=== PATIENT | female | born 2000 | race Caucasian/White ===

== ENCOUNTER 2020-10-20 03:11 | Emergency (ER) | payer OTHER, SELFPAY ==
--- NOTE | 2020-10-20 03:37 | Emergency Department Report ---
<JOVANNI MOJICA - Last Filed: 10/20/20 03:35> ED Psych HPI - General Chief Complaint: Psych Stated Complaint: SUICIDE ATTEMPT Time Seen by Provider: 10/20/20 03:14 Source: patient, police, EMS Mode of arrival: Ambulatory - History of Present Illness Initial Comments: Chief complaint: Suicide attempt HPI: This is a 20-year-old female with history of previous suicide attempt who was discovered attempting to jump off a bridge. Report given per police. Patient was transported per EMS. Patient states she just does not like herself anymore. She states that she just does not want to be here anymore. She lives with her father. MD Complaint: suicidal ideation, feels depressed -: days(s) (Several days) Associated Psychiatric Symptoms: depression, suicidal ideation History of same: Yes Quality: constant Improves With: none Worsens With: none Context: not taking psychiatric Associated Symptoms: denies other symptoms Treatments Prior to Arrival: other (Police EMS transportation) If Self Harm: has acted on plan (Was discovered attempting to jump from a bridge) - Related Data Previous Rx's Medication Instructions Recorded Last Taken Type Sertraline [Zoloft] 25 mg PO QDAY #30 tab 10/22/20 Unknown Rx hydrOXYzine PAMOATE [Vistaril] 25 mg PO BID PRN #60 capsule 10/22/20 Unknown Rx Allergies Allergy/AdvReac Type Severity Reaction Status Date / Time No Known Allergies Allergy Verified 10/20/20 09:25 ED Review of Systems Comment: All other systems reviewed and negative Constitutional: denies: fever, malaise Respiratory: denies: cough, shortness of breath Cardiovascular: denies: chest pain Gastrointestinal: denies: abdominal pain, nausea, vomiting Musculoskeletal: denies: back pain Skin: denies: rash, lesions Psychiatric: depression, suicidal thoughts. denies: anxiety, auditory hallucinations, visual hallucinations, homicidal thoughts ED Past Medical Hx - Past Medical History Previous Medical History?: No - Surgical History Past Surgical History?: No - Social History Smoking Status: Never Smoker Substance Use Type: Cocaine - Medications Home Medications: Home Medications Medication Instructions Recorded Confirmed Last Taken Type Sertraline [Zoloft] 25 mg PO QDAY #30 tab 10/22/20 Unknown Rx hydrOXYzine PAMOATE [Vistaril] 25 mg PO BID PRN #60 capsule 10/22/20 Unknown Rx ED Physical Exam - General Limitations: Language Barrier (Staff member provided Serbian interpretation) General appearance: alert, in no apparent distress, other (Tearful but cooperative calm) - Head Head exam: Present: atraumatic, normocephalic - Eye Eye exam: Present: normal appearance - ENT ENT exam: Present: mucous membranes moist - Neck Neck exam: Present: normal inspection, full ROM. Absent: tenderness, meningismus - Respiratory Respiratory exam: Present: normal lung sounds bilaterally. Absent: respiratory distress, wheezes, rales, rhonchi, stridor - Cardiovascular Cardiovascular Exam: Present: regular rate, normal rhythm, normal heart sounds. Absent: systolic murmur, diastolic murmur, rubs, gallop - GI/Abdominal GI/Abdominal exam: Present: soft, normal bowel sounds. Absent: distended, tenderness, guarding, rebound - Extremities Exam Extremities exam: Present: normal inspection - Neurological Exam Neurological exam: Present: alert, oriented X3 - Psychiatric Psychiatric exam: Present: normal affect, depressed, suicidal ideation (Tearful), other - Skin Skin exam: Present: warm, dry, intact, normal color. Absent: rash ED Medical Decision Making - Medical Decision Making Suicide attempt: Patient was discovered attempting to jump off a bridge. Christy de la rosa has previous history of suicide attempt. Patient is medically clear for psychiatric care. 1013 form completed. ED hold order in place. ED Disposition Clinical Impression: Alcohol intoxication, Suicidal ideations, Depression Disposition: DC-01 TO HOME OR SELFCARE Condition: Stable Instructions: Suicidal Feelings: How to Help Yourself, Living With Depression, Binge-Drinking Information, Adult Additional Instructions: Please follow-up with a psychiatrist or one of the outpatient behavioral health resources listed below. Please avoid any further alcohol use, as you are still under age, and in general please avoid any excessive alcohol intake. He is avoid any illicit drug use. Return to the emergency department with any worsening of your symptoms, thoughts of harming herself or others, or with any acute distress. Professional and Agency Contacts To help [facility](10/11) [place] Crisis Line: Suicide Prevention Line: Crisis Text Line: Text START to [phone] Emergency: 911 Outpatient COMMUNITY Behavioral Health Resources: [facility] [address] [address] [address], [place] [address] [place]: [facility] [address] [place], [place] [address] [facility]: [facility] [address] [place] [address] [place]: [facility] - [address] [place] [address] Thursday thru Thursday - 8am - 5pm [place]: [facility] Address: [address], [place] [address] [place]: [facility] Address: [address] [place] [address] Thursday thru Thursday- 7am-2pm [facility] Address: [address] [place] [address] Thursday thru Thursday: 8:30AM-5PM OUTPATIENT MENTAL HEALTH RESOURCES [facility], [address] [place] [address] [facility] Robin Avalos MD: [address] [facility] [address] [place], [place] [id number] [facility]: [address] [place] [address] [employer] [place], [place] [id number] [phone] [facility]: [address] [facility] [address] [place], [place] [id number] [facility]: [address] [facility] [address] [facility] [id number] [facility]: [address] [place], [place] Armando Holley MD: [address] [facility] [id number] [facility]: [address] [place], [place] [id number] [phone] [place] CRISIS AND ACCESS LINE: * Prescriptions: hydrOXYzine PAMOATE [Vistaril] 25 mg PO BID PRN #60 capsule PRN Reason: Anxiety Sertraline [Zoloft] 25 mg PO QDAY #30 tab [facility] - 2-3 Days [facility] [Provider Group] - 2-3 Days <REVA TILLMAN S - Last Filed: 10/22/20 11:19> ED Review of Systems ROS: Stated complaint: SUICIDE ATTEMPT Other details as noted in HPI ED Course Vital Signs 10/20/20 10/20/20 10/20/20 03:12 03:28 09:03 Temperature 98.4 F 98.2 F 98.3 F Pulse Rate 90 109 H 104 H Respiratory 16 18 16 Rate Blood Pressure 116/64 100/56 103/58 [Right] O2 Sat by Pulse 100 97 96 Oximetry 10/20/20 10/20/20 10/21/20 10:20 20:00 08:00 Temperature 98.8 F 97.6 F Pulse Rate 94 H 87 89 Respiratory 16 18 Rate Blood Pressure 116/62 120/78 [Right] O2 Sat by Pulse 97 98 Oximetry 10/21/20 10/21/20 10/22/20 20:00 22:00 02:03 Temperature 98.2 F 99.2 F Pulse Rate 76 78 Respiratory 16 18 16 Rate Blood Pressure 108/67 116/70 [Right] O2 Sat by Pulse 97 98 96 Oximetry 10/22/20 07:52 Temperature 98.0 F Pulse Rate 69 Respiratory 20 Rate Blood Pressure 109/63 [Right] O2 Sat by Pulse 98 Oximetry ED Medical Decision Making - Lab Data Result diagrams: 10/22/20 08:22 10/20/20 03:45 - Medical Decision Making This patient presented to the emergency department on 10/20 with the complaint of suicidal ideations after she was discovered attempting to jump off of a bridge. At that time she was placed on a 1013 and an ED hold. She was medically cleared by my colleague, Dr. Mojica. She did have a blood alcohol level of 0.17 but that has since resolved and the patient does not appear acutely i ntoxicated. The patient has been in the emergency department now for about 2 days and was placed on Vistaril and Zoloft. She was seen by the psychiatric team today and the patient denies any suicidal ideations. The psychiatric team also spoke with the patient's father who helped to create a safety plan. The patient expresses hope and optimism. Therefore the 1013 has been rescinded. I saw this patient this morning as well and once again she denies any current suicidal or homicidal ideations. She has been instructed to take the medications as prescribed, follow-up outpatient with psychiatric/behavioral health resources, but to return to the closest emergency department with any worsening of her symptoms, thoughts of harming herself or others, or with any acute distress. Critical Care Time: No Critical care attestation.: If time is entered above; I have spent that time in minutes in the direct care of this critically ill patient, excluding procedure time. ED Disposition Is pt being admited?: No Time of Disposition: 11:19
[2020-10-20 04:10] LABS: Basophils # (Auto) 0.2 K/mm3 (0.0-0.1); Basophils % (Auto) 1.2 % (0.0-1.8); Eosinophils # (Auto) 0.1 K/mm3 (0.0-0.4); Eosinophils % (Auto) 0.9 % (0.0-4.3); Hematocrit 38.4 % (30.3-42.9); Hemoglobin 13.7 gm/dl (10.1-14.3); Lymphocytes # (Auto) 2.5 K/mm3 (1.2-5.4); Lymphocytes % (Auto) 19.5 % (13.4-35.0); Mean Corpuscular HGB Conc 36 % (30-34); Mean Corpuscular Volume 82 fl (79-97); Monocytes # (Auto) 0.5 K/mm3 (0.0-0.8); Monocytes % (Auto) 3.8 % (0.0-7.3); Platelet Count 480 K/mm3 (140-440); Red Blood Count 4.72 M/mm3 (3.65-5.03)
[2020-10-20 04:20] LABS: Bacteria,Urine 2+ /HPF (Negative); Bilirubin,Urine NEG (Negative); Blood,Urine SM (Negative); Color,Urine Straw (Yellow); Protein,Urine <15 mg/dL mg/dL (Negative); Urobilinogen,Urine < 2.0 mg/dL (<2.0); WBC,Urine < 1.0 /HPF (0.0-6.0)
[2020-10-20 04:23] LABS: Amphetamine Screen,Urine Negative; Benzodiazepines Screen,Urine Negative; Cannabinoid Screen,Urine Negative; Cocaine Screen,Urine Negative; Methadone Screen,Urine Negative; Opiate Screen,Urine Negative
[2020-10-20] MEDS ORDERED: LORazepam 1 MG TAB PO ONE (04:26)
[2020-10-20] MEDS ORDERED: MELATONIN 5 MG TAB PO ONE (04:26)
[2020-10-20 04:38] LABS: Blood Urea Nitrogen 7 mg/dL (7-17); Calcium 9.5 mg/dL (8.4-10.2); Hemolysis Index 0
[2020-10-20 04:39] LABS: BUN/Creatinine Ratio 14
[2020-10-20] MEDS ORDERED: IBUPROFEN 800 MG TAB PO ONE (09:06)
--- NOTE | 2020-10-20 09:17 | Consultation ---
History of Present Illness - Reason for Consult Consult date: 10/20/20 Reason for consult: SI - History of Present Psychiatric Illness Per ER Note: HPI: This is a 20-year-old female with history of previous suicide attempt who was discovered attempting to jump off a bridge. Report given per police. Patient was transported per EMS. Patient states she just does not like herself anymore. She states that she just does not want to be here anymore. She lives with her father. Kelly Hooker is a 20y/o female patient I evaluated today. The patient was evaluated using a rope coiling machine operator. The patient says she was brought to the hospital because she tried to throw herself off a bridge. She says she "can't control herself." The patient is tearful and appears down. She also appears anxious. She does verbalizes being depressed. She says she lives with her dad, and says there is a lot of family issues. The patient denies any type of abuse at home. She is asking to be treated at home. Explained to the patient that for her safety she would need to have inpatient treatment. The patient verbalized understanding. She denies any psych history or psych meds. She also denies any illicit drug use. She denies hallucinations of any kind. PAST PSYCHIATRIC HISTORY: Diagnoses: Denies Suicide attempts or Self-harm behavior: Denied Prior psychiatric hospitalizations: Denies Substance Abuse history: Denies Previous psychiatric medications tried: Denies Outpatient treatment: Denies PAST MEDICAL HISTORY: None reported Family Psychiatric History: None reported or documented SOCIAL HISTORY Marital Status: Single Living Arrangements: lives with dad Employment Status: unemployed Access to guns/weapons: Denies Education: History of Abuse: Denies Legal History: Denies REVIEW OF SYSTEMS Constitutional: Negative for weight loss ENT: Negative for stridor Respiratory: Negative for cough or hemoptysis All other systems reviewed and are negative MENTAL STATUS EXAMINATION General Appearance and Behavior: Age appropriate, good hygiene, wearing appropriate clothes, cooperative polite with questioning. Cooperation: cooperative Psychomotor Behavior: Psychomotor normal Mood: Depressed Affect and affective range: congruent with stated mood, tearful Thought Process: Goal directed Thought Content: Within reality Speech: low tone Suicidal Ideation: Yes Homicidal Ideation: Denies hallucination: Denied Delusions: None elicited Impulse Control: Impaired Insight and Judgment: Limited Memory: Intact Attention: Undistracted Orientation: Alert and oriented Diagnoses: Major Depressive Disorder RECOMMENDATIONS 1013 Start Zoloft 25mg po daily Start Vistaril 25mg po BID Patient should be compliant with medications and not to use drugs and not to drink alcohol. PSYCHOTHERAPY: Supportive psychotherapy provided MEDICAL: Per primary team DELIRIUM PRECAUTIONS: Please re-orient patient frequently, keep lights on during the day, and minimize benzodiazepines and opiates as these medications could worsen patient's confusion. SIDEWALK REPAIRER: Per medical team DISPOSITION: Recommend acute inpatient psychiatric hospitalization at this time FOLLOW-UP: Will follow. Thank you for the consult. Please contact with any questions and/or concerns. Medications and Allergies Allergies Allergy/AdvReac Type Severity Reaction Status Date / Time No Known Allergies Allergy Unverified 10/20/20 03:26 Mental Status Exam - Vital signs Last Vital Signs Temp 98.3 F 10/20/20 09:03 Pulse 104 H 10/20/20 09:03 Resp 16 10/20/20 09:03 BP 103/58 10/20/20 09:03 Pulse Ox 96 10/20/20 09:03 Results Result Diagrams: 10/20/20 03:45 10/20/20 03:45 Abnormal lab results 10/20/20 10/20/20 10/20/20 Range/Units 03:45 03:45 03:45 WBC 13.0 H (4.5-11.0) K/mm3 MCHC 36 H (30-34) % Plt Count 480 H (140-440) K/mm3 Baso # (Auto) 0.2 H (0.0-0.1) K/mm3 Seg Neutrophils % 74.6 H (40.0-70.0) % Seg Neutrophils # 9.7 H (1.8-7.7) K/mm3 Carbon Dioxide 20 L (22-30) mmol/L Creatinine 0.5 L (0.6-1.2) mg/dL Glucose 102 H (65-100) mg/dL Salicylates < 0.3 L (2.8-20.0) mg/dL Acetaminophen (10.0-30.0) ug/mL Plasma/Serum Alcohol (0-0.07) % 10/20/20 10/20/20 Range/Units 03:45 03:45 WBC (4.5-11.0) K/mm3 MCHC (30-34) % Plt Count (140-440) K/mm3 Baso # (Auto) (0.0-0.1) K/mm3 Seg Neutrophils % (40.0-70.0) % Seg Neutrophils # (1.8-7.7) K/mm3 Carbon Dioxide (22-30) mmol/L Creatinine (0.6-1.2) mg/dL Glucose (65-100) mg/dL Salicylates (2.8-20.0) mg/dL Acetaminophen 5.0 L (10.0-30.0) ug/mL Plasma/Serum Alcohol 0.17 H (0-0.07) % All other labs normal.
[2020-10-20] MEDS: SERTRALINE 25 MG TAB PO SCH (10:02)
[2020-10-20] MEDS: hydrOXYzine PAMOATE 25 MG CAP PO SCH ×2 (10:02→22:58)
--- NOTE | 2020-10-20 10:28 | Event Note ---
Date: 10/20/20 20-year-old female who was brought in after attempting to end her life by jumping off a bridge. She was seen by my colleague and medically cleared for psychiatric evaluation and placement. 1013 was initiated. She was seen by the mental health heat treater/psychiatry team today and they have recommended placement at an inpatient psychiatric facility. Afebrile and with stable vital signs. Initially slightly tachycardic but heart rate today is improved in the 90s. Currently awaiting psychiatric placement
--- NOTE | 2020-10-21 10:28 | Progress Note ---
Subjective - Reason for Consult Consult date: 10/21/20 Reason for consult: SI - Chief Complaint Chief complaint: The patient was seen today, she is sitting up. She says she slept good. The patient still endorses SI and depression. REVIEW OF SYSTEMS Constitutional: Negative for weight loss ENT: Negative for stridor Respiratory: Negative for cough or hemoptysis All other systems reviewed and are negative MENTAL STATUS EXAMINATION General Appearance and Behavior: Age appropriate, good hygiene, wearing appropriate clothes, cooperative polite with questioning. Cooperation: cooperative Psychomotor Behavior: Psychomotor normal Mood: Depressed Affect and affective range: congruent with stated mood, tearful Thought Process: Goal directed Thought Content: Within reality Speech: low tone Suicidal Ideation: Yes Homicidal Ideation: Denies hallucination: Denied Delusions: None elicited Impulse Control: Impaired Insight and Judgment: Limited Memory: Intact Attention: Undistracted Orientation: Alert and oriented Diagnoses: Major Depressive Disorder RECOMMENDATIONS 1013 Continue Zoloft 25mg po daily Continue Vistaril 25mg po BID Patient should be compliant with medications and not to use drugs and not to drink alcohol. PSYCHOTHERAPY: Supportive psychotherapy provided MEDICAL: Per primary team DELIRIUM PRECAUTIONS: Please re-orient patient frequently, keep lights on during the day, and minimize benzodiazepines and opiates as these medications could worsen patient's confusion. MORTUARY TECHNICIAN: Per medical team DISPOSITION: Recommend acute inpatient psychiatric hospitalization at this time FOLLOW-UP: Will follow. Thank you for the consult. Please contact with any questions and/or concerns. Mental Status Exam - Vital signs Last Vital Signs Temp 97.6 F 10/21/20 08:00 Pulse 89 10/21/20 08:00 Resp 18 10/21/20 08:00 BP 120/78 10/21/20 08:00 Pulse Ox 98 10/21/20 08:00
--- NOTE | 2020-10-21 10:41 | Event Note ---
Date: 10/21/20 20-year-old female who was brought in after attempting to end her life by jumping off a bridge. Placed on 1013 order and medically cleared by my colleague. Vital signs have been stable. There were no acute events overnight. Currently awaiting inpatient psychiatric placement.
[2020-10-21] MEDS: SERTRALINE 25 MG TAB PO SCH (12:16)
[2020-10-21] MEDS: hydrOXYzine PAMOATE 25 MG CAP PO SCH ×2 (12:16→22:55)
[2020-10-22 07:53] VITALS: BP 109/63
--- NOTE | 2020-10-22 08:44 | Progress Note ---
Subjective - Reason for Consult Consult date: 10/22/20 Reason for consult: suicidal - Chief Complaint Chief complaint: The patient was seen today, she is sitting up. She appears to be improving, but still looks down. She says she slept good. The patient says she feels "better." I reached to brother and father, called twice each number and finally got dad. REVIEW OF SYSTEMS Constitutional: Negative for weight loss ENT: Negative for stridor Respiratory: Negative for cough or hemoptysis All other systems reviewed and are negative MENTAL STATUS EXAMINATION General Appearance and Behavior: Age appropriate, good hygiene, wearing appropriate clothes, cooperative polite with questioning. Cooperation: cooperative Psychomotor Behavior: Psychomotor normal Mood: Depressed Affect and affective range: congruent with stated mood, tearful Thought Process: Goal directed Thought Content: Within reality Speech: low tone Suicidal Ideation: Yes Homicidal Ideation: Denies hallucination: Denied Delusions: None elicited Impulse Control: Impaired Insight and Judgment: Limited Memory: Intact Attention: Undistracted Orientation: Alert and oriented Diagnoses: Major Depressive Disorder RECOMMENDATIONS 1013 Continue Zoloft 25mg po daily Continue Vistaril 25mg po BID Patient should be compliant with medications and not to use drugs and not to drink alcohol. PSYCHOTHERAPY: Supportive psychotherapy provided MEDICAL: Per primary team DELIRIUM PRECAUTIONS: Please re-orient patient frequently, keep lights on during the day, and minimize benzodiazepines and opiates as these medications could worsen patient's confusion. CELLOPHANE TESTER: Per medical team DISPOSITION: Recommend acute inpatient psychiatric hospitalization at this time FOLLOW-UP: Will follow. Thank you for the consult. Please contact with any questions and/or concerns. Mental Status Exam - Vital signs Last Vital Signs Temp 98.0 F 10/22/20 07:52 Pulse 69 10/22/20 07:52 Resp 20 10/22/20 07:52 BP 109/63 10/22/20 07:52 Pulse Ox 98 10/22/20 07:52
--- NOTE | 2020-10-22 09:37 | Event Note ---
Date: 10/22/20 Dad came up to the hospital after I spoke with him over the phone. Food And Beverage Assistant Manager assistance used to discuss patient progress and treatment plan. Dad is optimistic about the patient's future and states that she has always been a good girl and this shocked him to hear that she had these feelings. Dad asked about outpatient treatment including therapy. He says he feels better if his daughter was treated at home with a place she can go in and then come home versus being inpatient. I also when and had another discussion with the patient. A manager content was also used to translate. The patient denies SI/HI. She says "I feel good now." The patient says she would never make a decision like that again. She says because she doesn't want to do that to her brothers and dad. She is optimistic about her future, and she says will exercise, work out and talk with her brothers and father. The patient says the medication she was given in the hospital helped her. She says it makes her feel relaxed. I also discussed with the patient the need for continued therapy and for her to openly discuss her feelings. The patient agrees and verbalizes understanding. I also spoke to dad about medications and the need for outpatient follow up in 7 to 10 days upon discharge. Advised, both, dad and Kelly to call 911 or crisis hotline if suicidal thoughts are to return. Updated Disposition D/c 1013 Zoloft 25mg po daily Vistaril 25mg po BID Disposition: Do not recommend acute psychiatric inpatient treatment at this time. The patient may discharge home with her father if medically clear. She and dad understand to seek immediate assistance if suicidal thoughts or fear of endangerment reoccur. The mud boss to give resources for outpatient psychiatry including CBT and med management The mud boss to further discuss safety plan and document outcome The patient to follow up in 7 to 10 days with outpatient psych Will sign off. Thanks Case staffed with Dr. Garrido.
[2020-10-22] MEDS: SERTRALINE 25 MG TAB PO SCH (10:08)
[2020-10-22] MEDS: hydrOXYzine PAMOATE 25 MG CAP PO SCH (10:08)
[2020-10-22 10:25] LABS: Basophils % (Auto) 0.3 % (0.0-1.8); Eosinophils # (Auto) 0.4 K/mm3 (0.0-0.4); Eosinophils % (Auto) 3.2 % (0.0-4.3); Hematocrit 34.4 % (30.3-42.9); Hemoglobin 11.6 gm/dl (10.1-14.3); Lymphocytes # (Auto) 3.1 K/mm3 (1.2-5.4); Lymphocytes % (Auto) 26.6 % (13.4-35.0); Mean Corpuscular HGB Conc 34 % (30-34); Mean Corpuscular Volume 83 fl (79-97); Monocytes # (Auto) 0.6 K/mm3 (0.0-0.8); Monocytes % (Auto) 4.8 % (0.0-7.3); Platelet Count 370 K/mm3 (140-440); Red Blood Count 4.12 M/mm3 (3.65-5.03); Red Cell Distribution Width 15.1 % (13.2-15.2)
== END 2020-10-22 12:23 | disposition home or self-care (01) ==
LOC: ED 03:11
DX: R45.851 Suicidal ideations (principal); F10.129 Alcohol abuse with intoxication, unspecified; Z20.822 Contact with and (suspected) exposure to COVID-19; F32.9 Major depressive disorder, single episode, unspecified; F14.90 Cocaine use, unspecified, uncomplicated; Z79.899 Other long term (current) drug therapy; Y90.9 Presence of alcohol in blood, level not specified
CPT/HCPCS: 36415; 80048; 80307; 81001; 84703; 85025; 99284; Q0177; U0003; 80320; G0480